=== PATIENT | male | born 1980 | race Two or more races ===

== ENCOUNTER 2017-10-28 23:00 | Emergency (ER) | payer OTHER ==
[~2017-10-28] VITALS: Ht 165.1 cm; Wt 70.6 kg
[2017-10-29 00:20] VITALS: BP 113/82
== END 2017-10-29 01:23 | disposition home or self-care (01) ==
LOC: ED 23:59
DX: S39.012A Strain of muscle, fascia and tendon of lower back, initial encounter (principal); V49.9XXA Car occupant (driver) (passenger) injured in unspecified traffic accident, initial encounter; Y93.89 Activity, other specified; Y99.8 Other external cause status; Y92.410 Unspecified street and highway as the place of occurrence of the external cause
CPT/HCPCS: 71045; 72050; 72072; 72110; 93005; 99284